=== PATIENT | female | born 1940 | race Caucasian/White ===

== ENCOUNTER 2018-01-21 11:07 | Emergency (ER) | payer MEDICARE, BC ==
[2018-01-21 11:56] LABS: #Eosinphils 0.1 thou/uL (0.0-0.7); #Lymphocytes 1.3 thou/uL (1.20-3.40); #Monocytes 0.4 thou/uL (0.11-0.59); %Basophils 0.2 % (0.0-1.0); %Eosinophils 1.7 % (0.0-10.0); %Lymphocytes 26.6 % (21.0-51.0); %Monocytes 8.4 % (0.0-10.0); %Neutrophils 63.1 % (42.0-75.0); Hemoglobin 11.8 g/dL (12.0-16.0); Mean Corpuscular HGB CONC 32.9 g/dL (32.0-36.0); Mean Corpuscular Hemoglobin 29.9 pg (27.0-31.0); Mean Platelet Volume 6.8 fL (7.4-10.4); Platelet Count 286 thou/uL (130-400); RBC Distribution Width 12.5 % (11.5-14.5); Red Blood Cell (RBC) Count 3.95 mill/uL (4.20-5.40); White Blood Cell (WBC) Count 4.7 thou/uL (4.8-10.8)
[2018-01-21 12:04] LABS: Bilirubin Negative (Negative); Blood, Urine Negative (Negative); Clarity CLEAR (Clear); Glucose, Urine (Dipstick) Negative (Negative); Leukocyte Small (Negative); Nitrite Negative (Negative); Protein, Urine (Dipstick) Negative (Neg-Trace); Specific Gravity, Urine 1.016 (1.002-1.036); Urobilinogen 0.2 mg/dL (0.2-1.0)
[2018-01-21 12:06] LABS: Bacteria/HPF Rare-Few HPF (None Seen); Hyaline Casts/LPF 0-3 HYALINE CAST LPF (0-3 Hyaline); RBC/HPF 0-3 HPF (0-3); Squamous Epithelial 0-3 HPF (0-3); WBC/HPF 0-3 HPF (0-3)
[2018-01-21 12:16] LABS: ALT (SGPT) Less than 7 U/L (8-55); AST (SGOT) 12 U/L (5-34); Albumin 3.6 g/dL (3.4-4.8); Alkaline Phosphatase 59 U/L (40-150); Anion Gap 10 mmol/L (10-20); BUN (Urea Nitrogen) 19 mg/dL (9.8-20.1); Bilirubin, Total 0.4 mg/dL (0.2-1.2); Calc. Creatinine Clearance 0 mL/min (70-130); Calcium 9.1 mg/dL (7.8-10.44); Carbon Dioxide 25 mmol/L (23-31); Chloride 108 mmol/L (98-107); Estimated GFR-MDRD 56; Globulin 2.3 g/dL (2.4-3.5); Glucose 92 mg/dL (83-110); Potassium 4.2 mmol/L (3.5-5.1); Protein, Total 5.9 g/dL (6.0-8.3); Sodium 139 mmol/L (136-145)
[2018-01-21 12:20] LABS: CKMB 0.7 ng/mL (0-6.6); Troponin I Less than 0.010 ng/mL (< 0.028)
--- NOTE | 2018-01-21 15:38 | RAD ---
AP VIEW CHEST WELL SUPINE AND UPRIGHT VIEWS OF ABDOMEN: 01/21/18 HISTORY: Patient with history of colon cancer. History of vomiting multiple times today. AP view chest as well as supine and upright views of the abdomen is obtained. The lungs are well aerated. No evidence of active intrathoracic disease seen. No evidence of effusion s, pneumonia or pneumothorax seen. Two views abdomen demonstrates abdominal gas pattern to be unremarkable. No evidence of bowel obstruc tion or ileus is seen. No dilated loops of bowel seen. there is a moderate amount of stool in the col on. IMPRESSION: 1. Stool noted in the colon with no evidence of obstruction or ileus. 2. Unremarkable AP view chest. POS: [facility]
== END 2018-01-21 13:49 | disposition home or self-care (01) ==
LOC: ERS 11:07
DX: E86.0 Dehydration (principal); R11.2 Nausea with vomiting, unspecified; F32.9 Major depressive disorder, single episode, unspecified
CPT/HCPCS: 36415; 74022; 80053; 81003; 81015; 82553; 84484; 85025; 96360

== ENCOUNTER 2018-01-28 10:27 | Emergency (ER) | payer MEDICARE, BC ==
[2018-01-28] MEDS ORDERED: Ondansetron HCl/PF 4 MG/2 ML Vial ONE (11:31)
[2018-01-28 11:34] LABS: #Eosinphils 0.1 thou/uL (0.0-0.7); #Lymphocytes 0.8 thou/uL (1.20-3.40); #Monocytes 0.3 thou/uL (0.11-0.59); #Neutrophils 3.4 thou/uL (1.40-6.50); %Basophils 0.6 % (0.0-1.0); %Eosinophils 1.7 % (0.0-10.0); %Lymphocytes 17.8 % (21.0-51.0); %Monocytes 6.9 % (0.0-10.0); %Neutrophils 73.1 % (42.0-75.0); Hemoglobin 11.5 g/dL (12.0-16.0); Mean Corpuscular HGB CONC 32.3 g/dL (32.0-36.0); Mean Corpuscular Hemoglobin 29.5 pg (27.0-31.0); Mean Corpuscular Volume 91.5 fl (81.0-99.0); Mean Platelet Volume 6.9 fL (7.4-10.4); Platelet Count 299 thou/uL (130-400); RBC Distribution Width 12.4 % (11.5-14.5); White Blood Cell (WBC) Count 4.7 thou/uL (4.8-10.8)
[2018-01-28] MEDS ORDERED: ISOVUE-370 76%-LOCM 1 ML ONE (11:47)
[2018-01-28 11:52] LABS: Lactic Acid 1.8 mmol/L (0.5-2.2)
[2018-01-28 11:54] LABS: Bilirubin Negative (Negative); Clarity CLEAR (Clear); Glucose, Urine (Dipstick) Negative (Negative); Leukocyte Small (Negative); Nitrite Negative (Negative); Protein, Urine (Dipstick) Negative (Neg-Trace); Specific Gravity, Urine 1.013 (1.002-1.036); Urobilinogen 0.2 mg/dL (0.2-1.0)
[2018-01-28 11:55] LABS: Bacteria/HPF None Seen HPF (None Seen); Hyaline Casts/LPF 0-3 HYALINE CAST LPF (0-3 Hyaline); Pathc Cast-AUWi Flag 0.43 (0-2.49); Squamous Epithelial 0-3 HPF (0-3)
[2018-01-28 11:57] LABS: ALT (SGPT) 7 U/L (8-55); AST (SGOT) 13 U/L (5-34); Albumin 3.6 g/dL (3.4-4.8); Alkaline Phosphatase 57 U/L (40-150); Anion Gap 9 mmol/L (10-20); BUN (Urea Nitrogen) 16 mg/dL (9.8-20.1); Bilirubin, Total 0.4 mg/dL (0.2-1.2); Calc. Creatinine Clearance 0 mL/min (70-130); Calcium 9.2 mg/dL (7.8-10.44); Carbon Dioxide 27 mmol/L (23-31); Chloride 109 mmol/L (98-107); Estimated GFR-MDRD 46; Globulin 2.6 g/dL (2.4-3.5); Glucose 75 mg/dL (83-110); Lipase 8 U/L (8-78); Potassium 4.3 mmol/L (3.5-5.1); Protein, Total 6.2 g/dL (6.0-8.3); Sodium 141 mmol/L (136-145)
[2018-01-28 12:00] LABS: Blood, Urine Trace (Negative)
[2018-01-28] MEDS ORDERED: Dicyclomine 20 MG TAB ONE (14:26)
--- NOTE | 2018-01-28 14:46 | CT ---
CT OF THE ABDOMEN AND PELVIS WITH IV CONTRAST MATERIAL: Date: 01/28/18 PROVIDED CLINICAL HISTORY: Vomiting. FINDINGS: The visualized lung bases are free of significant opacity. Bilateral parapelvic renal cysts are seen, greater left of midline. Tiny hypodensities involving the liver are too small to definitively characterize, but statistically reflect benign lesions such as cy sts or hemangiomata. The solid abdominal organs demonstrate an otherwise unremarkable CT appearance. There is no bowel dilatation, inflammatory fat stranding, free fluid, or free air apparent. Vascular calcifications are seen involving the abdominal aorta and its branches. Postoperative change s are seen in association with the colon. Mild haziness to the presacral fat and prominence to the re ctal mucosa is nonspecific and may be on the basis of post-treatment change. Correlation with concern s for proctitis recommended. Presumed radiation changes are seen involving the sacrum. IMPRESSION: 1. No definite evidence for an acute process. No evidence for bowel obstruction. 2. Presumed post-treatment changes involving the pelvis. Please see above. POS: [facility]
[2018-01-28] MEDS ORDERED: Mag-Al 1200 mg/1200 mg/30 ML UDCUP ONE (15:01)
[2018-01-28] MEDS ORDERED: Lidocaine Viscous Sol 2% 15 ml UD Cup ONE (15:01)
--- NOTE | 2018-02-09 15:00 | EKG ---
Test Reason : ER INDICATION Blood Pressure : / mmHG Vent. Rate : 066 BPM Atrial Rate : 066 BPM P-R Int : 182 ms QRS Dur : 088 ms QT Int : 400 ms P-R-T Axes : 071 027 044 degrees QTc Int : 419 ms Normal sinus rhythm Possible Anterior infarct , age undetermined Abnormal ECG Confirmed by CHRISTINA MENJIVAR ([id number]), newspaper copy editor ROBERTO MARTIN ([id number] on 02/09/2018 3:00:14 PM Referred By: Confirmed By:CHRISTINA MENJIVAR
== END 2018-01-28 14:45 | disposition home or self-care (01) ==
LOC: ERS 10:27
DX: R31.9 Hematuria, unspecified (principal); R10.30 Lower abdominal pain, unspecified; R19.7 Diarrhea, unspecified; F32.9 Major depressive disorder, single episode, unspecified; Z79.899 Other long term (current) drug therapy
CPT/HCPCS: 36415; 74177; 80053; 81003; 81015; 83605; 83690; 85025; 93005; 94760; 96361; 96374; J2405

== ENCOUNTER 2018-02-14 09:33 | Emergency (ER) | payer MEDICARE, BC ==
[2018-02-14] MEDS ORDERED: Promethazine HCl 25 MG/ML VIAL ONE (09:59)
[2018-02-14 10:04] LABS: #Eosinphils 0.1 thou/uL (0.0-0.7); #Lymphocytes 1.1 thou/uL (1.20-3.40); #Monocytes 0.7 thou/uL (0.11-0.59); #Neutrophils 5.7 thou/uL (1.40-6.50); %Basophils 0.3 % (0.0-1.0); %Eosinophils 0.7 % (0.0-10.0); %Monocytes 9.4 % (0.0-10.0); %Neutrophils 74.6 % (42.0-75.0); Hemoglobin 13.3 g/dL (12.0-16.0); Mean Corpuscular HGB CONC 33.3 g/dL (32.0-36.0); Mean Corpuscular Hemoglobin 30.6 pg (27.0-31.0); Mean Corpuscular Volume 91.8 fl (81.0-99.0); Mean Platelet Volume 7.2 fL (7.4-10.4); Platelet Count 349 thou/uL (130-400); RBC Distribution Width 12.3 % (11.5-14.5); Red Blood Cell (RBC) Count 4.36 mill/uL (4.20-5.40); White Blood Cell (WBC) Count 7.6 thou/uL (4.8-10.8)
[2018-02-14 10:33] LABS: ALT (SGPT) 9 U/L (8-55); AST (SGOT) 14 U/L (5-34); Albumin 4.1 g/dL (3.4-4.8); Alkaline Phosphatase 68 U/L (40-150); Anion Gap 8 mmol/L (10-20); BUN (Urea Nitrogen) 16 mg/dL (9.8-20.1); Bilirubin, Total 0.6 mg/dL (0.2-1.2); Calc. Creatinine Clearance 0 mL/min (70-130); Calcium 9.4 mg/dL (7.8-10.44); Carbon Dioxide 29 mmol/L (23-31); Chloride 107 mmol/L (98-107); Estimated GFR-MDRD 51; Globulin 2.5 g/dL (2.4-3.5); Glucose 98 mg/dL (83-110); Lipase 7 U/L (8-78); Protein, Total 6.6 g/dL (6.0-8.3); Sodium 140 mmol/L (136-145)
== END 2018-02-14 11:50 | disposition home or self-care (01) ==
LOC: ERS 09:33
DX: K59.00 Constipation, unspecified (principal); F32.9 Major depressive disorder, single episode, unspecified; Z85.038 Personal history of other malignant neoplasm of large intestine; Z79.899 Other long term (current) drug therapy
CPT/HCPCS: 80053; 83605; 83690; 85025; 96365; J2550

== ENCOUNTER 2018-04-05 09:12 | Inpatient (IN) | payer MEDICARE, BC ==
[2018-04-05 09:52] LABS: #Basophils 0.1 thou/uL (0.0-0.2); #Lymphocytes 2.3 thou/uL (1.20-3.40); #Monocytes 0.6 thou/uL (0.11-0.59); #Neutrophils 7.7 thou/uL (1.40-6.50); %Basophils 0.5 % (0.0-1.0); %Eosinophils 0.5 % (0.0-10.0); %Lymphocytes 21.3 % (21.0-51.0); %Monocytes 5.5 % (0.0-10.0); %Neutrophils 72.3 % (42.0-75.0); Mean Corpuscular HGB CONC 33.1 g/dL (32.0-36.0); Mean Corpuscular Hemoglobin 29.3 pg (27.0-31.0); Mean Corpuscular Volume 88.4 fl (81.0-99.0); Mean Platelet Volume 7.2 fL (7.4-10.4); Platelet Count 312 thou/uL (130-400); RBC Distribution Width 12.5 % (11.5-14.5); Red Blood Cell (RBC) Count 4.76 mill/uL (4.20-5.40); White Blood Cell (WBC) Count 10.6 thou/uL (4.8-10.8)
[2018-04-05 10:07] LABS: ALT (SGPT) 7 U/L (8-55); AST (SGOT) 18 U/L (5-34); Albumin 4.3 g/dL (3.4-4.8); Alkaline Phosphatase 62 U/L (40-150); Anion Gap 14 mmol/L (10-20); BUN (Urea Nitrogen) 23 mg/dL (9.8-20.1); Bilirubin, Total 0.5 mg/dL (0.2-1.2); Calc. Creatinine Clearance 0 mL/min (70-130); Calcium 10.4 mg/dL (7.8-10.44); Carbon Dioxide 23 mmol/L (23-31); Chloride 109 mmol/L (98-107); Estimated GFR-MDRD 50; Globulin 3.2 g/dL (2.4-3.5); Glucose 106 mg/dL (83-110); Lipase 21 U/L (8-78); Potassium 4.5 mmol/L (3.5-5.1); Protein, Total 7.5 g/dL (6.0-8.3); Sodium 141 mmol/L (136-145)
[2018-04-05] MEDS ORDERED: Meclizine HCl 25 MG TAB ONE (11:31)
[2018-04-05] MEDS ORDERED: Ondansetron HCl/PF 4 MG/2 ML Vial IVP SCH (11:45)
[2018-04-05 12:32] LABS: Bilirubin Negative (Negative); Blood, Urine Negative (Negative); Clarity CLEAR (Clear); Glucose, Urine (Dipstick) Negative (Negative); Leukocyte Negative (Negative); Nitrite Negative (Negative); Protein, Urine (Dipstick) Negative (Neg-Trace); Specific Gravity, Urine 1.006 (1.002-1.036); Urobilinogen 0.2 mg/dL (0.2-1.0); pH, Urine 7.5 (5.0-9.0)
[2018-04-05] MEDS ORDERED: Iopamidol 370 76% 100 ML VIAL ONE (13:35)
[2018-04-05] MEDS ORDERED: Morphine 4 MG/ML VIAL ONE (13:36)
[2018-04-05] MEDS ORDERED: MD-Gastroview 120 ML BOT ONE (13:43)
[2018-04-05] MEDS ORDERED: Ondansetron HCl/PF 4 MG/2 ML Vial ONE (14:04)
--- NOTE | 2018-04-05 15:05 | CT ---
CT ABDOMEN AND PELVIS WITH IV CONTRAST: Technique: Multiple axial tomograms were obtained through the abdomen and pelvis with IV enhancement. Oral contrast was not administered. Indications: Abdominal pain. Assess for small bowel obstruction. Nausea, vomiting, diarrhea. Comparison: 01-28-18 FINDINGS: Lung bases are clear. Views of the liver again show scattered low density foci. The largest is a 1.5 cm low density focus i n the peripheral left lobe of the liver near the midline which probably represents a small hepatic cy st. There are 3-4 tiny subcentimeter lesions in the left lobe which cannot be adequately characterize d. There is another ill-defined 1 cm lesion in the posterior right lobe. These all remain stable in a ppearance. Spleen unremarkable. The pancreas shows prominence of the pancreatic duct. This was noted on prior exam. No pancreatic mas s lesion identified. There is no evidence of intrahepatic ductal dilatation. Gallbladder is unremarka ble, however, cholesterol gallstones will not be seen on a CT. Consider correlation with gallbladder ultrasound, given the presence of pancreatic ductal dilatation. The adrenal gland is normal. Kidneys show numerous small renal cystic lesions, many of which are subcentimeter and too small to ch aracterize. There are parapelvic cysts bilaterally, more numerous on the left with at least one left parapelvic cyst measuring 2.0 cm. Numerous tiny cortical cysts bilaterally are subcentimeter and too small to adequately characterize. There is a 1 cm hypodense lesion in the anterior left renal cortex which has Hounsfield units recorded at 89. This is, therefore, a complex lesion and is not a simple c yst. It is stable from the prior study. Proximal jejunal loops show nonspecific distention without dilatation. However, there are fluid fille d dilated loops of small bowel in the mid and distal small bowel. There is evidence of an anastomosis in the mid small bowel with radiopaque suture material. The small bowel is dilated at this anastomos is and there is fecalization of the small bowel. The small bowel lumen measures 4 cm at this site and there are several loops of dilated small bowel present. Distal and terminal ilial loops show only mi ld dilatation. There is stool and gas throughout the colon. Images through the pelvis shows a small amount of free fluid. There is a cystic lesion in the left ad nexa measuring up to 3.2 cm. This was present on the prior study. Ovarian etiology would be suspected . This should be further evaluated in this age patient. The uterus appears unremarkable. Aorta is nor mal caliber. IMPRESSION: 1. There are dilated loops of mid small bowel with loop measuring up to 4 cm. There is fecalization o f these small bowel loops. A closed loop obstruction or internal hernia is a consideration. This invo lves an apparent anastomotic site. Small bowel follow through may be of benefit to further evaluate. 2. There is a complex low density lesion in the anterior left renal cortex which has densities measur ed at 89 Hounsfield units. This lesion will need to be followed closely. It measures approximately 1 cm. 3. Numerous small indeterminate low density lesions in both kidneys are subcentimeter. There is a lef t parapelvic cyst measuring 2 cm. 4. Mild dilatation of the pancreatic duct of uncertain etiology. 5. Indeterminate low density lesions in the liver as described above, probably small hepatic cysts. 4. Small amount of free fluid in the deep pelvis. 5. Cystic mass in the left adnexa, presumably ovarian. Recommend close follow up and [employer] consultation in a patient of this age. POS: [facility]
--- NOTE | 2018-04-05 17:19 | CON ---
DATE OF CONSULTATION: 04/05/2018 REQUESTING PHYSICIAN: Dr. El. HISTORY OF PRESENT ILLNESS: This is a 77-year-old woman with a known history of stage IV c olon carcinoma. The patient underwent colectomy with primary anastomosis in 2004 with adjuvant chemo radiation therapy. She was re-operated on 6 years later for a small-bowel obstruction with extensive adhesiolysis was accomplished. Since 2010, the patient has had no other surgeries. She, however, c ontinues to have recurrent nausea and alternating episodes of constipation and diarrhea. She present ed to emergency department today with intermittent abdominal pain and occasional bloating. She denie s any passing flatus in the last 24 hours. She denies any hematochezia, melena. She denies any emes is. Last colonoscopy was 3 years ago which according to her was unremarkable. PAST MEDICAL HISTORY: Pertinent for colon cancer and intra-abdominal adhesions. She has had multipl e emergency room visits for evaluation of small-bowel obstruction. Other pertinent medical history i ncludes essential hypertension and chronic depression. SURGICAL HISTORY: Significant for exploratory laparotomy, colectomy with primary anastomosis, incisi onal herniorrhaphy, exploratory laparotomy with lysis of adhesions. SOCIAL HISTORY: She is . She recently relocated from [place]. She used to smoke about 4 c igarettes per day, did so for approximately 15 years. She has not smoked for over 20 years. She den ies any ethanol or illicit drug abuse. FAMILY HISTORY: Noncontributory for this patient's age. CURRENT MEDICATIONS: Includes Zofran 8 mg p.o. q.6. hours p.r.n., Lexapro 10 mg p.o. daily. ALLERGIES: Patient denies any known drug allergies. REVIEW OF SYSTEMS: A 10-point review of systems is essentially unremarkable except for as stated in past medical history and chief complaint. PHYSICAL EXAMINATION: GENERAL: This reveals a 77-year-old normally developed woman who is otherwise coherent and interacti ve and appears stated age. Patient is alert and oriented x3, appears to be in no acute distress at t he time of my evaluation. She is amnestic to this and events. According to caregiver at bedside, nicola hernandez has had worsening loss of memory over the last 1-2 years. CURRENT VITAL SIGNS: Includes blood pressure 159/56, pulse 66, respiratory rate is 23, temperature 9 8.7 degrees Fahrenheit, oxygen saturation is 97% on room air. HEENT: Reveals normocephalic and atraumatic. Pupils are equal, round, and reactive to light and acc ommodation. Extraocular muscles are intact bilaterally. She has no sclerae icterus present. Oral m ucosa is pink and moist. No lesions are noted. NECK: Supple. No palpable lymphadenopathy or thyromegaly present. HEART: Reveals regular rate and rhythm, no murmurs or gallops auscultated. LUNGS: Clear to auscultation bilaterally. Her breathing is regular and unlabored. ABDOMEN: Soft, nontender to palpation. She has moderate distention. Liver and spleen nonpalpable b elow costal margins. EXTREMITIES: Reveals 2+ radial and pedal pulses bilaterally. No ankle edema is present. NEUROLOGIC: Reveals no focal deficits present. PERTINENT LABORATORY FINDINGS: Today includes a CBC with 10,600 white blood cells, hemoglobin 14.0, hematocrit 42.1, platelet count is 312,000. Metabolic profile: Sodium 141, potassium is 4.5, chlori de is 109, bicarbonate 23, BUN 23, creatinine 1.07, glucose 106, total bilirubin 0.5, AST and ALT not ed at 18 and 7 respectively. Serum lipase is normal at 21. Urinalysis essentially unremarkable. I have personally reviewed the CT scan of the abdomen and pelvis which reveals multiple distended loops of small bowel with fecalization of some small bowel segments. There is mild free fluid in the pelv ic cavity. No clear transition zone is noted. It appears to be gas in the colon and rectum. There is a 3.2 cm left ovarian cystic masses noted. There are some abnormal lesions in the left hepatic lo be. No pneumatosis intestinalis, pneumoperitoneum is observed. IMPRESSION: 1. Acute partial bowel obstruction secondary to intraabdominal adhesions. 2. History of chronic depression. PLAN: 1. We will initiate bowel rest and small bowel follow-through to better define the anatomy of the chester wel obstruction and exclude any potential closed loop bowel obstructions. 2. There is no acute surgical indication for this patient at this time. We will continue with seria l physical examination and make further recommendations as necessary. Above findings and plan discussed with the patient and her caregiver at bedside. They both indicated understanding of information given. I answered their questions. Thank you again, Dr. El, for allowing me the opportunity to participate in the care of this patien t.
[2018-04-05] MEDS ORDERED: Ondansetron HCl/PF 4 MG/2 ML Vial IVP PRN (17:52)
[2018-04-05] MEDS ORDERED: Ondansetron ODT 4 MG TAB SL PRN (18:18)
[2018-04-05] MEDS: Sodium Chloride 0.9% 1,000 ML IV SCH (19:55)
--- NOTE | 2018-04-05 20:31 | RAD ---
SMALL BOWEL FOLLOW THROUGH 04/05/18 COMPARISON: CT abdomen/pelvis 04/05/18. HISTORY: Nausea and vomiting that began last night. FINDINGS: A gastrografin small bowel follow through was performed. the small bowel loops are normal in caliber. The contrast passed through the small bowel loops to the colon by three hours. IMPRESSION: No evidence of bowel obstruction. POS: [facility]
--- NOTE | 2018-04-05 23:39 | HP ---
CHIEF COMPLAINT: Abdominal pain, nausea, vomiting. HISTORY OF PRESENT ILLNESS: She is a 77-year-old woman with history of colon resection, small-bowel obstruction. She came into the hospital because of having some nausea and vomiting started last nigh t. She denies any diarrhea. Whatever she eats, she feels nauseated and vomits out. She denies any blood in the vomitus. Because of these symptoms, she came to ER. Her daughter brought her to ER. When she came here, pulse 63, blood pressure 154/69, respirations 16, temperature 98.7. In the ER, C AT scan of the belly was done that showed small-bowel obstruction. PAST MEDICAL HISTORY: History of colon cancer treated with chemotherapy, radiation, and resection; d ementia. PAST SURGICAL HISTORY: Hernia repair. SOCIAL HISTORY: Denies alcohol use or drug use. No smoking history. MEDICATIONS: Medications she got in the ER: Zofran and morphine. Current home medications: She takes Lexapro 10 mg every day, Zofran sublingual, Protonix 40 mg every day, meclizine 25 daily, and melatonin. REVIEW OF SYSTEMS: General: She denies any fever, malaise. Ear, nose, throat: Denies any rhinorrh ea, any blurry vision. Respiratory: Denies any cough, chest pain, shortness of breath, palpitation. Cardiovascular: Denies any palpitation, chest pain. Gastrointestinal: She does have constipation s, some diarrhea, some nausea and vomiting, some belly pain. Musculoskeletal: No back pain. Skin: No skin review of system. Neurologic: Negative. No headache, no dizziness. All other review of s tewy is negative except in the history and physical. PHYSICAL EXAMINATION: GENERAL: She is an elderly woman lying in the bed, not in distress, communicating very well. HEENT: Head is atraumatic, normocephalic. Pupils are round and reactive. Extraocular movements int act. Nose and throat are normal. Tongue mucosa moist. NECK: Supple. No JVD, no thyromegaly. CHEST: Has a normal vesicular breathing. No added sound. CARDIOVASCULAR: S1, S2 audible. No S3, S4. ABDOMEN: Slightly tender. Slightly distended. Generalized tenderness. Bowel sounds are present. No palpable masses. EXTREMITIES: No pedal edema. No cyanosis or clubbing. NEUROLOGIC: She is alert and oriented x3. No focal deficit. SKIN: No rash. LYMPHATICS: No lymphadenopathy. PSYCHIATRIC: Normal affect; however, she is demented. LABORATORY DATA: WBC 10.6, RBC 4.7, hematocrit 42.1, MCV 88.4, platelets 312. Sodium 141, potassium 4.5, chloride 109, carbon dioxide 23, anion gap 14, BUN 23, creatinine 1.07, glucose 106, calcium 10 .4, total bilirubin 0.5, AST 18, ALT 17, alkaline phosphatase 62, serum protein 7.5, albumin 4.3, selina bulin 3.2, albumin and globulin ratio 1.3, lipase 21. Urine negative. CAT scan shows dilated loops of small bowel of 4 cm. There is fecalization of small bowel loops, david sed loop obstruction, renal cyst, ovarian cyst. IMPRESSION: 1. Acute partial small-bowel obstruction secondary to intra-abdominal adhesion. 2. History of colon resection 3. History of depression. PLAN: N.P.O., IV fluid, bowel rest, bowel follow through. Surgery consult obtained. Keep her n.p.o . No surgical intervention at this point. Follow closely. DVT prophylaxis will be Lovenox, SCDs. DNR.
[2018-04-06 05:23] LABS: #Lymphocytes 1.2 thou/uL (1.20-3.40); #Monocytes 0.7 thou/uL (0.11-0.59); #Neutrophils 4.9 thou/uL (1.40-6.50); %Basophils 0.2 % (0.0-1.0); %Eosinophils 0.6 % (0.0-10.0); %Lymphocytes 17.1 % (21.0-51.0); %Monocytes 10.3 % (0.0-10.0); %Neutrophils 71.7 % (42.0-75.0); Hemoglobin 11.3 g/dL (12.0-16.0); Mean Corpuscular HGB CONC 33.2 g/dL (32.0-36.0); Mean Corpuscular Hemoglobin 29.8 pg (27.0-31.0); Mean Corpuscular Volume 89.6 fl (81.0-99.0); Mean Platelet Volume 7.4 fL (7.4-10.4); Platelet Count 265 thou/uL (130-400); RBC Distribution Width 12.5 % (11.5-14.5); White Blood Cell (WBC) Count 6.9 thou/uL (4.8-10.8)
[2018-04-06 05:34] LABS: Anion Gap 6 mmol/L (10-20); BUN (Urea Nitrogen) 14 mg/dL (9.8-20.1); Calc. Creatinine Clearance 42 mL/min (70-130); Carbon Dioxide 28 mmol/L (23-31); Chloride 114 mmol/L (98-107); Estimated GFR-MDRD 62; Glucose 95 mg/dL (83-110); Potassium 4.4 mmol/L (3.5-5.1); Sodium 144 mmol/L (136-145)
[2018-04-06] MEDS: Sodium Chloride 0.9% 1,000 ML IV SCH (07:30)
[2018-04-06] MEDS ORDERED: Enoxaparin Sodium 40 MG/0.4 ML SYRINGE SC SCH (09:00)
[2018-04-06 10:46] VITALS: BMI 20.7
[2018-04-06] MEDS ORDERED: Sodium Chloride 0.9% 1,000 ML IV SCH (11:30)
[2018-04-06 12:14] VITALS: TEMP 98.5
--- NOTE | 2018-04-06 15:56 | PDOC.PN ---
- Subjective Encounter Start Date: 04/06/18 Encounter Start Time: 15:54 Subjective: Pt is seen and examined for partial small bowel obstruction -: no nausea, vomiting , fever - Objective Vital Signs & Weight: Vital Signs (12 hours) Temp Pulse Resp BP Pulse Ox 04/06/18 12:00 98.5 F 60 18 153/58 H 98 04/06/18 08:00 98.3 F 61 18 120/61 98 04/06/18 05:52 98.4 F 69 18 99/61 97 Weight Admit Weight 132 lb 9.6 oz Weight 132 lb 9.6 oz I&O: 04/05/18 04/06/18 04/07/18 06:59 06:59 06:59 Intake Total 820 Balance 820 Result Diagrams: 04/06/18 04:31 04/06/18 04:31 Radiology Reviewed by me: Yes Phys Exam - Physical Examination HEENT: PERRLA, moist MMs, sclera anicteric, oral pharynx no lesions Neck: no nodes, no JVD, supple, full ROM Respiratory: no wheezing, no rales, no rhonchi, clear to auscultation bilateral Cardiovascular: RRR, no significant murmur, no rub Gastrointestinal: soft, non-tender, no distention, positive bowel sounds Musculoskeletal: no edema Neurological: non-focal, normal sensation Lymphatic: no nodes Psychiatric: normal affect, A&O x 3 Skin: no rash, normal turgor, cap refill <2 seconds Dx/Plan - Plan plan discussed w/ family * . 1) Acute Partial small bowel obstruction, NPO, IV Fluids General Surgery consulted 2) DVT prophylaxis SCD's
[2018-04-06 17:04] VITALS: BP 121/55
--- NOTE | 2018-04-06 20:40 | PRG ---
DATE OF SERVICE: 04/06/2018 SUBJECTIVE: Ms. Rivera is a 77-year-old woman admitted with abdominal pain and initial diagnosis o f partial small-bowel obstruction. A small bowel follow-through was unremarkable. Overnight, the pa tient has had multiple bowel movements. Today, she denies any abdominal pain. She is tolerating t today. She has had no emesis since admission. She has remained hemodynamically stable and afebril e. There clearly is no clinical evidence of acute small-bowel obstruction. General Surgery will therefo re sign off and be available to reevaluate the patient on demand. She may be discharged home at the discretion of the primary service.
--- NOTE | 2018-04-06 22:03 | DIS ---
DATE OF ADMISSION: 04/05/2018 DATE OF DISCHARGE: 04/06/2018 ADMITTING DIAGNOSIS: Partial small-bowel obstruction. FINAL DIAGNOSIS: Partial small-bowel obstruction. She is a 77-year-old female with history of hypertension and depression; came in with nausea, vomitin g, history of colon resection and small adhesion. She was kept in hospital overnight and she improve d. Surgical consult was obtained. No surgical intervention and the patient was eating fine and was discharged. PHYSICAL EXAMINATION: VITAL SIGNS: Temperature 98.4, pulse 69, blood pressure 120/61, respiratory rate 18. NECK: Supple. No JVD. CHEST: Normal vesicular breathing. No added sound. CVS: S1, S2 audible. No S3, S4. ABDOMEN: Soft, but no bowel sounds audible. No organomegaly. EXTREMITIES: No pedal edema. DIAGNOSTIC DATA: CAT scan showed partial small-bowel obstruction. LABORATORY DATA: Hemoglobin 11.3, hematocrit 34.3, platelets 265, MCV 89.6. Sodium 144, potassium 4 .4, chloride 114, anion gap 6, carbon dioxide 28, BUN 14, creatinine 0.88. Small bowel follow-through, no bowel obstruction. So, discharge home to follow up with the PCP.
[2018-04-07] MEDS ORDERED: Escitalopram Oxalate 10 mg Tablet PO SCH (09:00)
== END 2018-04-06 17:59 | disposition home or self-care (01) | DRG 390 ==
LOC: ERS 09:12 → T4-A 18:05
PROVIDERS: ADMIT Family Medicine; ATTEND Family Medicine
DX: K56.51 Intestinal adhesions [bands], with partial obstruction (principal); I10 Essential (primary) hypertension; F32.9 Major depressive disorder, single episode, unspecified; Z90.49 Acquired absence of other specified parts of digestive tract; Z85.038 Personal history of other malignant neoplasm of large intestine; F03.90 Unspecified dementia, unspecified severity, without behavioral disturbance, psychotic disturbance, mood disturbance, and anxiety; Z66 Do not resuscitate; Z87.891 Personal history of nicotine dependence
CPT/HCPCS: 36415; 74177; 74250; 80048; 80053; 81003; 83690; 85025; 96361; 96374; 96375; J1650; J2270; J2405; Q0162

== ENCOUNTER 2018-04-21 14:50 | Emergency (ER) | payer MEDICARE, BC ==
[2018-04-21 15:58] LABS: Bilirubin Negative (Negative); Blood, Urine Trace (Negative); Clarity CLEAR (Clear); Glucose, Urine (Dipstick) Negative (Negative); Leukocyte Trace (Negative); Nitrite Negative (Negative); Protein, Urine (Dipstick) Negative (Neg-Trace); Specific Gravity, Urine 1.014 (1.002-1.036); Urobilinogen 0.2 mg/dL (0.2-1.0); pH, Urine 5.5 (5.0-9.0)
[2018-04-21 16:00] LABS: Bacteria/HPF None Seen HPF (None Seen); Hyaline Casts/LPF 0-3 HYALINE CAST LPF (0-3 Hyaline); Pathc Cast-AUWi Flag 0.29 (0-2.49); Squamous Epithelial 0-3 HPF (0-3); WBC/HPF 0-3 HPF (0-3)
[2018-04-21 16:12] LABS: #Eosinphils 0.1 thou/uL (0.0-0.7); #Lymphocytes 1.4 thou/uL (1.20-3.40); #Monocytes 0.4 thou/uL (0.11-0.59); #Neutrophils 4.2 thou/uL (1.40-6.50); %Basophils 0.4 % (0.0-1.0); %Eosinophils 0.9 % (0.0-10.0); %Lymphocytes 23.2 % (21.0-51.0); %Monocytes 7.2 % (0.0-10.0); %Neutrophils 68.4 % (42.0-75.0); Hemoglobin 12.6 g/dL (12.0-16.0); Mean Corpuscular HGB CONC 33.4 g/dL (32.0-36.0); Mean Corpuscular Hemoglobin 29.8 pg (27.0-31.0); Mean Corpuscular Volume 89.1 fl (81.0-99.0); Mean Platelet Volume 7.1 fL (7.4-10.4); Platelet Count 346 thou/uL (130-400); RBC Distribution Width 12.5 % (11.5-14.5); Red Blood Cell (RBC) Count 4.24 mill/uL (4.20-5.40); White Blood Cell (WBC) Count 6.2 thou/uL (4.8-10.8)
[2018-04-21 16:34] LABS: ALT (SGPT) 7 U/L (8-55); AST (SGOT) 12 U/L (5-34); Albumin 4.1 g/dL (3.4-4.8); Alkaline Phosphatase 64 U/L (40-150); Anion Gap 11 mmol/L (10-20); BUN (Urea Nitrogen) 19 mg/dL (9.8-20.1); Bilirubin, Total 0.5 mg/dL (0.2-1.2); Calc. Creatinine Clearance 0 mL/min (70-130); Calcium 9.9 mg/dL (7.8-10.44); Carbon Dioxide 26 mmol/L (23-31); Chloride 105 mmol/L (98-107); Estimated GFR-MDRD 53; Globulin 2.9 g/dL (2.4-3.5); Glucose 101 mg/dL (83-110); Lipase 13 U/L (8-78); Potassium 3.6 mmol/L (3.5-5.1); Sodium 138 mmol/L (136-145)
== END 2018-04-21 18:04 | disposition home or self-care (01) ==
LOC: ERS 14:50
DX: R11.0 Nausea (principal); K59.00 Constipation, unspecified; F32.9 Major depressive disorder, single episode, unspecified; Z79.899 Other long term (current) drug therapy
CPT/HCPCS: 36415; 80053; 81003; 81015; 83690; 85025; 99283

== ENCOUNTER 2018-05-12 09:18 | Emergency (ER) | payer MEDICARE, BC ==
[2018-05-12] MEDS ORDERED: Ondansetron ODT 4 MG TAB ONE (09:50)
[2018-05-12 10:27] LABS: #Monocytes 0.6 thou/uL (0.11-0.59); #Neutrophils 8.3 thou/uL (1.40-6.50); %Basophils 0.1 % (0.0-1.0); %Eosinophils 0.4 % (0.0-10.0); %Monocytes 5.9 % (0.0-10.0); %Neutrophils 83.6 % (42.0-75.0); Hemoglobin 12.8 g/dL (12.0-16.0); Mean Corpuscular HGB CONC 33.2 g/dL (32.0-36.0); Mean Corpuscular Hemoglobin 29.6 pg (27.0-31.0); Mean Corpuscular Volume 89.2 fL (78.0-98.0); Platelet Count 259 thou/uL (130-400); RBC Distribution Width 12.6 % (11.5-14.5); Red Blood Cell (RBC) Count 4.31 mill/uL (4.20-5.40); White Blood Cell (WBC) Count 9.9 thou/uL (4.8-10.8)
[2018-05-12 10:50] LABS: Bilirubin Negative (Negative); Blood, Urine Negative (Negative); Clarity CLEAR (Clear); Glucose, Urine (Dipstick) Negative (Negative); Leukocyte Negative (Negative); Nitrite Negative (Negative); Protein, Urine (Dipstick) Negative (Neg-Trace); Specific Gravity, Urine 1.011 (1.002-1.036); Urobilinogen 0.2 mg/dL (0.2-1.0); pH, Urine 7.5 (5.0-9.0)
[2018-05-12 10:57] LABS: ALT (SGPT) Less than 7 U/L (8-55); AST (SGOT) 11 U/L (5-34); Albumin 3.5 g/dL (3.4-4.8); Alkaline Phosphatase 59 U/L (40-150); Anion Gap 13 mmol/L (10-20); BUN (Urea Nitrogen) 12 mg/dL (9.8-20.1); Bilirubin, Total 0.6 mg/dL (0.2-1.2); Calc. Creatinine Clearance 0 mL/min (70-130); Calcium 8.9 mg/dL (7.8-10.44); Carbon Dioxide 21 mmol/L (23-31); Chloride 111 mmol/L (98-107); Estimated GFR-MDRD 61; Globulin 2.5 g/dL (2.4-3.5); Glucose 115 mg/dL (83-110); Lipase 12 U/L (8-78); Sodium 141 mmol/L (136-145)
--- NOTE | 2018-05-12 11:41 | CT ---
CT ABDOMEN AND PELVIS WITH CONTRAST: Date: 05/12/18 HISTORY: Abdominal pain, vomiting, nausea, and constipation. History of Stage IV colon cancer. COMPARISON: CT abdomen and pelvis dated 04/05/18. FINDINGS: Lung bases are clear. No pericardial effusion. Hypodensity in left lobe of the liver has not increase d in size. Hypodensity posterior right lobe of the liver has not increased in size. No intrahepatic or extrahepatic biliary dilatation. Spleen is unremarkable. Small sliding hiatal simran ia. There is a dilated loop of small bowel in the pelvis with some mucosal hyperenhancement just distal t o the anastomotic suture. This small bowel again measures up to 3.7 cm, similar to the comparison exa mination. Small volume free fluid in the pelvis, similar. There is a small peripherally enhancing co llection of fluid along the left pelvic side wall, may represent small lymphocele. In the mid ileum, there is a thickened loop of small bowel with another area of mucosal hyperenhancem ent. All of these findings are similar to the comparison examination. Multiple mild bilateral parapelvic cysts. Aortoiliac contour is nonaneurysmal. No adenopathy. IMPRESSION: 1. Unchanged dilated loops of mid small bowel with loops measuring up to approximately 4.0 cm. This involves the anastomotic site. 2. The previously described renal lesion measures approximately 70 Hounsfield units without signific ant interval growth. Continued follow-up recommended. 3. Unchanged cystic lesion within the left adnexa, may be ovarian or from a lymphocele. 4. Unchanged hepatic hypodensities, not definitively metastatic disease. 5. Submucosal edema and mucosal hyperenhancement of the distal ileum, concern for an underlying infe ctious etiology. This is new from the comparison exam. 6. Lucencies of the sacrum bilaterally suggesting healing insufficiency fractures. POS: [facility]
== END 2018-05-12 11:25 | disposition home or self-care (01) ==
LOC: ERS 09:18
DX: R11.2 Nausea with vomiting, unspecified (principal); R10.9 Unspecified abdominal pain; F32.9 Major depressive disorder, single episode, unspecified; F03.90 Unspecified dementia, unspecified severity, without behavioral disturbance, psychotic disturbance, mood disturbance, and anxiety; Z79.01 Long term (current) use of anticoagulants; Z79.899 Other long term (current) drug therapy
CPT/HCPCS: 36415; 74177; 80053; 81003; 83690; 85025; 96360; Q0162

== ENCOUNTER 2018-07-12 11:47 | Outpatient (CLI) | payer MEDICARE, BC | END 2018-07-12 11:48 | disposition home or self-care (01) | LOC: ULT 11:47 | PROVIDERS: ATTEND Family Medicine | DX: R00.2 Palpitations (principal); I08.1 Rheumatic disorders of both mitral and tricuspid valves | CPT/HCPCS: 93306 ==

== ENCOUNTER 2018-07-25 12:16 | Emergency (ER) | payer MEDICARE, BC ==
[~2018-07-25 12:16] MED LIST: ISOVUE-370 76%-LOCM 1 ML ONE
[2018-07-25] MEDS ORDERED: Dicyclomine 20 MG TAB ONE (13:37)
[2018-07-25 13:50] LABS: #Lymphocytes 0.9 thou/uL (1.20-3.40); #Monocytes 0.3 thou/uL (0.11-0.59); #Neutrophils 3.8 thou/uL (1.40-6.50); %Basophils 0.2 % (0.0-1.0); %Eosinophils 0.5 % (0.0-10.0); %Lymphocytes 17.9 % (21.0-51.0); %Monocytes 5.4 % (0.0-10.0); Hemoglobin 12.8 g/dL (12.0-16.0); Mean Corpuscular HGB CONC 32.7 g/dL (32.0-36.0); Mean Corpuscular Volume 91.5 fL (78.0-98.0); Mean Platelet Volume 6.9 fL (7.4-10.4); Platelet Count 288 thou/uL (130-400); RBC Distribution Width 12.3 % (11.5-14.5); Red Blood Cell (RBC) Count 4.26 mill/uL (4.20-5.40)
[2018-07-25 14:13] LABS: ALT (SGPT) Less than 7 U/L (8-55); AST (SGOT) 13 U/L (5-34); Albumin 3.8 g/dL (3.4-4.8); Alkaline Phosphatase 60 U/L (40-150); Anion Gap 12 mmol/L (10-20); BUN (Urea Nitrogen) 19 mg/dL (9.8-20.1); Bilirubin, Total 0.7 mg/dL (0.2-1.2); CKMB 0.5 ng/mL (0-6.6); Calc. Creatinine Clearance 0 mL/min (70-130); Calcium 9.7 mg/dL (7.8-10.44); Carbon Dioxide 24 mmol/L (23-31); Chloride 104 mmol/L (98-107); Estimated GFR-MDRD 63; Globulin 2.7 g/dL (2.4-3.5); Glucose 100 mg/dL (83-110); Lipase 10 U/L (8-78); Potassium 4.2 mmol/L (3.5-5.1); Protein, Total 6.5 g/dL (6.0-8.3); Sodium 136 mmol/L (136-145); Troponin I Less than 0.010 ng/mL (< 0.028)
[2018-07-25 14:47] LABS: Bilirubin Negative (Negative); Blood, Urine Negative (Negative); Clarity CLOUDY (Clear); Glucose, Urine (Dipstick) Negative (Negative); Leukocyte Moderate (Negative); Nitrite Negative (Negative); Protein, Urine (Dipstick) Negative (Neg-Trace); Specific Gravity, Urine 1.018 (1.002-1.036); Urobilinogen 0.2 mg/dL (0.2-1.0); pH, Urine 5.5 (5.0-9.0)
[2018-07-25 14:49] LABS: Bacteria/HPF None Seen HPF (None Seen); Hyaline Casts/LPF 0-3 HYALINE CAST LPF (0-3 Hyaline); Pathc Cast-AUWi Flag 0.14 (0-2.49)
--- NOTE | 2018-07-25 16:44 | CT ---
CT ABDOMEN WITH CONTRAST: CT PELVIS WITH CONTRAST: HISTORY: Stage IV renal cancer. Intermittent diarrhea and constipation. COMPARISON: 05/12/2018 FINDINGS: ABDOMEN: The lung bases are clear. Heart size is normal. Trace amount of anterior pericardial flui d. Visualized aorta is unchanged. Portal vein is patent. Stable hypodensities in the hepatic paren chyma. The largest hypodensity continues to be in the posterior segment of the right hepatic lobe, m easuring 0.8 cm. There are enhancing masses in the liver. The largest hypodensity in the left hepat ic lobe continues to be 1.4 cm in maximal dimension. The spleen, pancreas, and adrenal glands are unremarkable. No gastrohepatic, retrocrural, or periportal lymphadenopathy. No mesenteric mass, lymphadenopathy, free air, or free fluid. Symmetric enhancement of the kidneys. Stable left parapelvic and right parapelvic cysts, along with fullness of the left renal pelvis. Bilaterally, no evidence of obstructive uropathy. There is no ev idence of an abnormal enhancing mass in the left or right renal cortex. Limited evaluation of the alimentary canal. No evidence of bowel obstruction. Multiple anastomoses are noted. There is a moderate amount of fecal material in the rectum. PELVIS: Unremarkable urinary bladder. No pelvic mass, lymphadenopathy, free air, or free fluid. Th ere is diffuse bone demineralization of the sacrum. Healing sacral insufficiency fractures are noted . IMPRESSION: 1. No evidence of obstructive uropathy. No evidence of a solid renal mass. 2. Unchanged hepatic hypodensities. 3. No evidence of bowel obstruction. POS: [facility]
--- NOTE | 2018-07-29 13:25 | EKG ---
Test Reason : ER Blood Pressure : / mmHG Vent. Rate : 070 BPM Atrial Rate : 070 BPM P-R Int : 168 ms QRS Dur : 086 ms QT Int : 396 ms P-R-T Axes : 087 066 081 degrees QTc Int : 427 ms Normal sinus rhythm Possible Left atrial enlargement Confirmed by TEO TEMPLE ([id number]), production editor NGUYEN MELGAR ([id number]) on 07/29/2018 1:24:50 PM Referred By: Confirmed By:TEO TEMPLE
== END 2018-07-25 17:35 | disposition home or self-care (01) ==
LOC: ERS 12:16
DX: E86.0 Dehydration (principal); F32.9 Major depressive disorder, single episode, unspecified; Z79.899 Other long term (current) drug therapy
CPT/HCPCS: 74177; 80053; 81003; 81015; 82553; 83690; 84484; 85025; 87086; 93005; 96360

== ENCOUNTER 2018-08-26 04:39 | Inpatient (IN) | payer MEDICARE, BC ==
[2018-08-26 05:08] LABS: #Basophils 0.1 thou/uL (0.0-0.2); #Eosinphils 0.1 thou/uL (0.0-0.7); #Lymphocytes 2.6 thou/uL (1.20-3.40); #Monocytes 0.4 thou/uL (0.11-0.59); #Neutrophils 3.4 thou/uL (1.40-6.50); %Lymphocytes 39.8 % (21.0-51.0); %Monocytes 6.5 % (0.0-10.0); %Neutrophils 51.7 % (42.0-75.0); Hemoglobin 14.2 g/dL (12.0-16.0); Mean Corpuscular HGB CONC 32.9 g/dL (32.0-36.0); Mean Corpuscular Hemoglobin 29.6 pg (27.0-31.0); Mean Platelet Volume 6.7 fL (7.4-10.4); Platelet Count 363 thou/uL (130-400); RBC Distribution Width 12.6 % (11.5-14.5); Red Blood Cell (RBC) Count 4.78 mill/uL (4.20-5.40); White Blood Cell (WBC) Count 6.6 thou/uL (4.8-10.8)
[2018-08-26 05:29] LABS: CKMB 0.7 ng/mL (0-6.6); Troponin I Less than 0.010 ng/mL (< 0.028)
[2018-08-26 05:30] LABS: ALT (SGPT) 9 U/L (8-55); AST (SGOT) 12 U/L (5-34); Alkaline Phosphatase 61 U/L (40-150); Anion Gap 13 mmol/L (10-20); BUN (Urea Nitrogen) 18 mg/dL (9.8-20.1); Bilirubin, Total 0.7 mg/dL (0.2-1.2); Calc. Creatinine Clearance 0 mL/min (70-130); Calcium 9.9 mg/dL (7.8-10.44); Carbon Dioxide 19 mmol/L (23-31); Chloride 108 mmol/L (98-107); Estimated GFR-MDRD 53; Globulin 2.9 g/dL (2.4-3.5); Glucose 126 mg/dL (83-110); Lipase 21 U/L (8-78); Potassium 3.7 mmol/L (3.5-5.1); Protein, Total 6.9 g/dL (6.0-8.3); Sodium 136 mmol/L (136-145)
[2018-08-26 05:55] LABS: Bilirubin Negative (Negative); Blood, Urine Negative (Negative); Clarity CLEAR (Clear); Glucose, Urine (Dipstick) Negative (Negative); Leukocyte Negative (Negative); Nitrite Negative (Negative); Protein, Urine (Dipstick) Negative (Neg-Trace); Specific Gravity, Urine 1.017 (1.002-1.036); Urobilinogen 0.2 mg/dL (0.2-1.0); pH, Urine 6.5 (5.0-9.0)
[2018-08-26] MEDS ORDERED: Piperacillin/Tazobactam 4.5 GM VIAL ONE (06:04)
[2018-08-26] MEDS ORDERED: Vancomycin HCl 1 GM in Premix Bag 1 BAG IVPB SCH (07:00)
--- NOTE | 2018-08-26 07:57 | RAD ---
CHEST 1 VIEW: HISTORY: Altered mental status. FINDINGS: Normal cardiac silhouette. The pulmonary vessels and hilum are normal. Costophrenic angles are diana r. No masses or consolidation. No pneumothorax or osseous abnormalities. IMPRESSION: No acute cardiopulmonary process. POS: [facility]
[2018-08-26 08:50] LABS: Lactic Acid 1.4 mmol/L (0.5-2.2)
[2018-08-26] MEDS ORDERED: Acetaminophen 325 MG TAB PO PRN (09:17)
[2018-08-26] MEDS ORDERED: Loperamide HCl 2 MG CAP PO PRN (09:17)
[2018-08-26] MEDS ORDERED: Ondansetron ODT 4 MG TAB PO PRN (09:17)
--- NOTE | 2018-08-26 09:28 | CT ---
PRELIMINARY REPORT/[facility]/EMERGENTY AFTER-HOURS PROCEDURE CT Head Without Intravenous Contrast EXAM DATE/TIME: 08/26/2018 5:50 AM CLINICAL HISTORY: 77 years old, female; Signs and symptoms; Altered mental status/memory loss; Confusion or disorientat ion; Patient HX: Patient had witnessed fall from standing due to tripping over the edge of the carpet . Denied head injury. Patient initially complaining of abdominal pain. reported that she was not acting normally. Patient has dementia, not at her baseline per report. Patient intermitte ntly answering questions coherently TECHNIQUE: Axial computed tomography images of the head/brain without intravenous contrast. COMPARISON: No relevant prior studies available. FINDINGS: Brain: Unremarkable. No hemorrhage. No overt white matter disease. No edema. Ventricles: Unremarkable. Bones/joints: No acute fracture. Sinuses: Unremarkable. Mastoid air cells: Unremarkable. Orbits: [place] left globe. Soft tissues: Unremarkable. IMPRESSION: No evidence of acute intracranial abnormality. Thank you for allowing us to participate in the care of your patient. Dictated and Authenticated by: Rafa Sheikh MD 08/26/2018 6:30 AM Central Time ([place] & [place]) FINAL REPORT NONCONTRAST HEAD CT: History Altered mental status. COMPARISON: None. FINDINGS: This report is in agreement with the preliminary report by [facility]. No acute intracranial process. POS: [facility]
--- NOTE | 2018-08-26 09:29 | CT ---
PRELIMINARY REPORT/[facility]/EMERGENTY AFTER-HOURS PROCEDURE CT Abdomen and Pelvis With Intravenous Contrast EXAM DATE/TIME: 08/26/2018 6:00 AM CLINICAL HISTORY: 77 years old, female; Pain; Abdominal pain; Generalized; Patient HX: Patient had witnessed fall from standing due to tripping over the edge of the carpet. Denied head injury. Patient initially complaini ng of abdominal pain. reported that she was not acting normally. Patient has dementia, not at her baseline per report. Patient intermittently answering questions coherently TECHNIQUE: Axial computed tomography images of the abdomen and pelvis with intravenous contrast. Coronal reformatted images were created and reviewed. COMPARISON: CT Abdomen Pelvis W Con 07/25/2018 3:27 PM FINDINGS: Lower thorax: No acute findings. ABDOMEN: Liver: Couple of small nonspecific low attenuation liver lesions measuring up to 1.5 cm in the left l obe. Gallbladder and bile ducts: Unremarkable. Pancreas: Unremarkable. Spleen: Unremarkable. Adrenals: Unremarkable. Kidneys and ureters: Bilateral parapelvic cysts. Symmetric nephrograms. No hydronephrosis. Stomach and bowel: Rectosigmoid and left lower quadrant small bowel sutures. Under distended proximal colon. No focal inflammatory changes or evidence of obstruction. Appendix: No evidence of appendicitis. PELVIS: Bladder: Unremarkable. Reproductive: 3 cm left adnexal/ovarian cyst. ABDOMEN and PELVIS: Intraperitoneal space: No free air. No significant fluid collection. Bones/joints: Vertically oriented sclerotic changes within the sacral ala bilaterally suspicious for chronic insufficiency fracture. No acute fracture or dislocation. Soft tissues: Unremarkable. Vasculature: Unremarkable. Lymph nodes: No enlarged lymph nodes. Other findings: Streak artifact from the patient's arms in the upper abdomen IMPRESSION: No acute findings. Thank you for allowing us to participate in the care of your patient. Dictated and Authenticated by: Rafa Sheikh MD 08/26/2018 6:40 AM Central Time ([place] & [place]) FINAL REPORT CT ABDOMEN WITH CONTRAST CT PELVIS WITH CONTRAST: COMPARISON: 07/25/2018, 05/12/2018. HISTORY: Pain. FINDINGS: This report is in agreement with the preliminary report by [facility]. No evidence of bowel obstruction. T here are no acute findings in the abdomen or pelvis. When using previous examinations as a compariso n, there is a persistent hypodensity in the left hemipelvis, measuring 3.0 x 2.5 cm compatible with a left ovarian cyst. Nonemergent [employer] consultation is recommended. Results of the study conveyed to Dr. Montgomery 08/26/2018 at 8:09 a.m. CODE CR POS: HIRAM
[2018-08-26] MEDS ORDERED: ISOVUE-370 76%-LOCM 1 ML ONE (10:03)
[2018-08-26 11:14] VITALS: BMI 26.2
[2018-08-26] MEDS: Piperacillin/Tazobactam 3.375 GM in Sodium Chloride 0.9% 100 ML IVPB SCH ×2 (11:28→16:59)
[2018-08-26] MEDS: Sodium Chloride 0.9% 1,000 ML IV SCH (11:28)
--- NOTE | 2018-08-26 14:14 | HP ---
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 The patient has been followed by Dr. Duke carey. She and her reside at [facility]. It is my understanding that her is status post cerebrovascular accident. The patient also has a history of dementia and is not a reliable historia n. She is chronically confused; however, the ER doctor reported that patient was more confused than usual. This morning, she fell and was brought to the emergency room where she was found to be hypoth ermic. At this time, the patient is awake, alert, in no acute distress. She is under a warming blan ket. She does complain of being hot. She does not complain of any chest pain, shortness of breath, abdominal pain, nausea, or vomiting. She really does not recall the events. She is somewhat confuse d. Workup in the ER included a CAT scan of the abdomen and pelvis which were unremarkable. LABORATORY AND X-RAY FINDINGS: Chest x-ray was negative. Labs are unremarkable except for an elevat ed lactic acid. PAST MEDICAL HISTORY: Includes history of colon cancer, status post resection, patient states stage 4 in 2010; history of depression. PAST SURGICAL HISTORY: Partial colectomy in 2010. FAMILY HISTORY: Two sons, healthy. SOCIAL HISTORY: She and her reside at [facility]. She does not report any alcohol or tobacc o history. She is . She has 2 sons. ALLERGIES: None. REVIEW OF SYSTEMS: As above. PHYSICAL EXAMINATION: VITAL SIGNS: Stable, afebrile at this time. GENERAL: In no acute distress. HEENT: Clear. NECK: Supple. HEART: Regular rate and rhythm. LUNGS: Clear. ABDOMEN: Soft with mild diffuse tenderness. EXTREMITIES: With no edema. LABORATORY: White count 6.6, H&H 14 and 43, platelet 363. Sodium 136, potassium 3.7, chloride 108, creatinine 1.0, BUN 18, glucose 126. Lactic acid 2.8 and repeat 1.4. Liver functions normal. Lipas e normal. Troponin I less than 0.010. Urine shows specific gravity 1.017. Urine ketones were trace , leukocyte esterase negative. Chest x-ray, negative. Brain abdomen and pelvic CT, negative. ASSESSMENT: 1. Altered mental status, unsure if the patient is at her baseline. However, she is in no acute dis tress. 2. Mild dehydration. 3. Hypothermia. 4. Elevated lactic acid, repeat normal. 5. Dementia. 6. History of depression. 7. History of chronic dizziness, status post physical therapy and treated with scopolamine in the [facility]. PLAN: 1. IV hydrate. 2. Warming blanket. 3. Repeat labs in the a.m. 4. Check blood cultures. 5. Physical therapy. 6. Restart Lexapro. 7. Continue Zosyn for now.
[2018-08-26] MEDS: Famotidine 20 MG TAB PO SCH (20:11)
[2018-08-27] MEDS: Piperacillin/Tazobactam 3.375 GM in Sodium Chloride 0.9% 100 ML IVPB SCH ×3 (00:55→11:06)
[2018-08-27 04:15] LABS: #Eosinphils 0.1 thou/uL (0.0-0.7); #Lymphocytes 1.6 thou/uL (1.20-3.40); #Monocytes 0.5 thou/uL (0.11-0.59); #Neutrophils 3.1 thou/uL (1.40-6.50); %Basophils 0.8 % (0.0-1.0); %Eosinophils 1.3 % (0.0-10.0); %Lymphocytes 29.6 % (21.0-51.0); %Monocytes 9.3 % (0.0-10.0); Hemoglobin 11.5 g/dL (12.0-16.0); Mean Corpuscular HGB CONC 33.5 g/dL (32.0-36.0); Mean Corpuscular Hemoglobin 30.7 pg (27.0-31.0); Mean Corpuscular Volume 91.7 fL (78.0-98.0); Mean Platelet Volume 6.8 fL (7.4-10.4); Platelet Count 294 thou/uL (130-400); RBC Distribution Width 12.6 % (11.5-14.5); Red Blood Cell (RBC) Count 3.73 mill/uL (4.20-5.40); White Blood Cell (WBC) Count 5.2 thou/uL (4.8-10.8)
[2018-08-27 04:29] LABS: ALT (SGPT) 7 U/L (8-55); AST (SGOT) 12 U/L (5-34); Albumin 3.3 g/dL (3.4-4.8); Alkaline Phosphatase 44 U/L (40-150); Anion Gap 8 mmol/L (10-20); BUN (Urea Nitrogen) 10 mg/dL (9.8-20.1); Bilirubin, Total 0.8 mg/dL (0.2-1.2); Calc. Creatinine Clearance 51 mL/min (70-130); Carbon Dioxide 26 mmol/L (23-31); Chloride 111 mmol/L (98-107); Estimated GFR-MDRD 60; Globulin 2.3 g/dL (2.4-3.5); Glucose 88 mg/dL (83-110); Potassium 3.7 mmol/L (3.5-5.1); Protein, Total 5.6 g/dL (6.0-8.3); Sodium 141 mmol/L (136-145)
[2018-08-27] MEDS: Famotidine 20 MG TAB PO SCH (07:15)
[2018-08-27 07:53] VITALS: TEMP 97.8
[2018-08-27] MEDS: Sodium Chloride 0.9% 1,000 ML IV SCH (08:46)
--- NOTE | 2018-08-27 08:46 | EKG ---
Test Reason : Blood Pressure : / mmHG Vent. Rate : 060 BPM Atrial Rate : 060 BPM P-R Int : 166 ms QRS Dur : 094 ms QT Int : 462 ms P-R-T Axes : 075 072 073 degrees QTc Int : 462 ms Sinus rhythm with Premature atrial complexes with Abberant conduction Otherwise normal ECG Confirmed by HIRAM GUTIERREZ ([id number]) on 08/27/2018 8:46:26 AM Referred By: Confirmed By:HIRAM GUTIERREZ
[2018-08-27] MEDS ORDERED: Escitalopram Oxalate 10 mg Tablet PO SCH (09:00)
[2018-08-27] MEDS ORDERED: Enoxaparin Sodium 40 MG/0.4 ML SYRINGE SC SCH (09:00)
[2018-08-27] MEDS ORDERED: Prevnar 13-Val Conj/PF 0.5 ML SYRINGE IM ONE (09:00)
[2018-08-27 11:20] VITALS: BP 126/65
[2018-08-27 12:12] LABS: #Lymphocytes 1.2 thou/uL (1.20-3.40); #Monocytes 0.3 thou/uL (0.11-0.59); #Neutrophils 3.7 thou/uL (1.40-6.50); %Basophils 0.8 % (0.0-1.0); %Eosinophils 0.9 % (0.0-10.0); %Lymphocytes 22.9 % (21.0-51.0); %Monocytes 4.9 % (0.0-10.0); %Neutrophils 70.6 % (42.0-75.0); Hemoglobin 12.3 g/dL (12.0-16.0); Mean Corpuscular Hemoglobin 30.4 pg (27.0-31.0); Mean Corpuscular Volume 91.9 fL (78.0-98.0); Platelet Count 329 thou/uL (130-400); RBC Distribution Width 12.6 % (11.5-14.5); Red Blood Cell (RBC) Count 4.06 mill/uL (4.20-5.40); White Blood Cell (WBC) Count 5.3 thou/uL (4.8-10.8)
--- NOTE | 2018-08-27 22:11 | DIS ---
DATE OF ADMISSION: 08/26/2018 DATE OF DISCHARGE: 08/27/2018 ADMITTING DIAGNOSIS: Sepsis. DISCHARGE DIAGNOSIS: There was no sepsis. It was syncopal episode with dehydration with anemia. HOSPITAL COURSE: The patient is a 77-year-old female patient of Dr. Solares's, who has a known history of stage IV colon cancer that has been treated by surgery, so she has a history of stag e IV colon cancer. She came to the hospital because she was feeling bad and had an altered mental st atus. The assumption was that she could have an infection and be septic. All lab work did not show that. Her initial white count was 6.6. Her initial platelets were 363. There was no left shift. T here are no abnormalities to neutrophils or lymphocytes. Her initial hemoglobin was 14. Subsequent hemoglobin on the day of discharge had dropped from 14-11.5, but then a second or third actually hemo globin was drawn several hours later and that one actually went up to 12.3, so there is no active ble eding. I think the problem was from IV hydration. The hemoglobin dropped and after getting fluids a nd rehydrated, she says she feels back to her same usual self and is ready to go home. She says she has had several of these episodes over the last year or two. She also has a history of dementia that is at least mild, so the plan for her is to be discharged to home. Resume her usual medicines and t o follow up with Dr. Solares in the next week or so.
== END 2018-08-27 16:58 | disposition home or self-care (01) | DRG 641 ==
LOC: ERS 04:39 → T4-A 08:20
PROVIDERS: ADMIT Family Medicine; ATTEND Family Medicine
DX: E86.0 Dehydration (principal); R55 Syncope and collapse; T68.XXXA Hypothermia, initial encounter; F03.90 Unspecified dementia, unspecified severity, without behavioral disturbance, psychotic disturbance, mood disturbance, and anxiety; Z90.49 Acquired absence of other specified parts of digestive tract; D64.9 Anemia, unspecified; Z85.038 Personal history of other malignant neoplasm of large intestine
CPT/HCPCS: 36415; 36416; 51701; 70450; 71045; 74177; 80053; 81003; 82140; 82553; 83605; 83690; 84484; 85025; 87040; 87149; 93005; 96361; 96365; 96367; A4353; G8978-GP-CJ; G8979-GP-CJ; G8980-GP-CJ; J2543; J3370; J7050

== ENCOUNTER 2018-09-27 09:02 | Outpatient (CLI) | payer MEDICARE, BC ==
--- NOTE | 2018-09-27 14:31 | NM ---
NUCLEAR MEDICINE GASTRIC EMPTYING EVALUATION: INDICATION: Nausea, vomiting, unspecified. RADIOPHARMACEUTICAL: 2.1 mCi Technetium 99m sulfur colloid ingested orally. The patient departed the radiology department prior to completion of imaging without notification to the attending staff. Therefore, the exam is incomplete. FINDINGS: Using anterior and posterior scintigraphic imaging reveals scintigraphic activity of the stomach and proximal small bowel. Due to the patient departing the image at 1 hour, the ascertained data cannot be reliably interpreted and, therefore, a reliable calculation of gastric emptying half-time and subs equent emptying time cannot be performed. IMPRESSION: Gastric emptying exam as above, with incomplete data, as the patient departed the radiology departmen t prior to the termination of the procedure. POS: ABRAHAM
== END 2018-09-27 09:03 | disposition home or self-care (01) ==
LOC: NM 09:02
PROVIDERS: ATTEND Internal Medicine Gastroenterology
DX: R11.2 Nausea with vomiting, unspecified (principal)
CPT/HCPCS: 78264; A9541

== ENCOUNTER 2018-10-31 09:56 | Emergency (ER) | payer MEDICARE, BC ==
[2018-10-31] MEDS ORDERED: Metoclopramide HCl 10 MG/2 ML VIAL ONE (10:24)
[2018-10-31 10:53] LABS: #Lymphocytes 1.1 thou/uL (1.20-3.40); #Monocytes 0.4 thou/uL (0.11-0.59); #Neutrophils 3.4 thou/uL (1.40-6.50); %Basophils 0.7 % (0.0-1.0); %Eosinophils 0.9 % (0.0-10.0); %Lymphocytes 21.6 % (21.0-51.0); %Monocytes 7.4 % (0.0-10.0); %Neutrophils 69.4 % (42.0-75.0); Hemoglobin 12.5 g/dL (12.0-16.0); Mean Corpuscular HGB CONC 32.7 g/dL (32.0-36.0); Mean Corpuscular Hemoglobin 29.9 pg (27.0-31.0); Mean Corpuscular Volume 91.4 fL (78.0-98.0); Mean Platelet Volume 7.6 fL (7.4-10.4); Platelet Count 326 thou/uL (130-400); RBC Distribution Width 12.4 % (11.5-14.5); Red Blood Cell (RBC) Count 4.18 mill/uL (4.20-5.40); White Blood Cell (WBC) Count 4.9 thou/uL (4.8-10.8)
[2018-10-31 11:19] LABS: ALT (SGPT) 7 U/L (8-55); AST (SGOT) 12 U/L (5-34); Albumin 3.4 g/dL (3.4-4.8); Alkaline Phosphatase 52 U/L (40-150); Anion Gap 10 mmol/L (10-20); BUN (Urea Nitrogen) 14 mg/dL (9.8-20.1); Bilirubin, Total 0.4 mg/dL (0.2-1.2); Calc. Creatinine Clearance 0 mL/min (70-130); Calcium 9.1 mg/dL (7.8-10.44); Carbon Dioxide 26 mmol/L (23-31); Chloride 106 mmol/L (98-107); Estimated GFR-MDRD 65; Globulin 2.5 g/dL (2.4-3.5); Glucose 96 mg/dL (83-110); Potassium 3.9 mmol/L (3.5-5.1); Protein, Total 5.9 g/dL (6.0-8.3); Sodium 138 mmol/L (136-145)
--- NOTE | 2018-11-04 17:22 | EKG ---
Test Reason : Blood Pressure : / mmHG Vent. Rate : 064 BPM Atrial Rate : 064 BPM P-R Int : 174 ms QRS Dur : 084 ms QT Int : 398 ms P-R-T Axes : 081 061 077 degrees QTc Int : 410 ms Normal sinus rhythm Normal ECG Confirmed by TEO TEMPLE ([id number]), marketing editor ROBERTO MARTIN ([id number]) on 11/04/2018 5:21:38 PM Referred By: Confirmed By:TEO TEMPLE
== END 2018-10-31 13:43 | disposition home or self-care (01) ==
LOC: ERS 09:56
DX: R11.2 Nausea with vomiting, unspecified (principal); R19.7 Diarrhea, unspecified; R55 Syncope and collapse; F32.9 Major depressive disorder, single episode, unspecified; Z79.899 Other long term (current) drug therapy
CPT/HCPCS: 36415; 80053; 84484; 85025; 93005; 96361; 96365; J2765